=== PATIENT | male | born 2000 | race Caucasian/White ===

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

== ENCOUNTER → 2023-11-05 12:30 | Outpatient (BNV) | payer BC, SELFPAY | PROVIDERS: Visit Provider Psychiatry & Neurology Psychiatry | DX: F32.A Depression, unspecified (principal); F43.22 Adjustment disorder with anxiety; F81.89 Other developmental disorders of scholastic skills; F63.9 Impulse disorder, unspecified | CPT/HCPCS: 90792; 99212; 99213 ==

== ENCOUNTER 2023-11-18 10:15 | Outpatient (RCR) | payer BC, SELFPAY ==
[2023-11-04 14:27] VITALS: BP 141/96; PULSE 100; TEMP 36.8
--- NOTE | 2023-11-04 14:27 | PC.ADMIT ---
Patient is a 23 year old male who was referred to [facility] by his family who were concerned regarding increased depression and anxiety sxs and recent behaviors. Patient reportedly has been making some poor choices and behaving inappropriately. See Integrative Assessment for more information. Patient is alert and oriented x4. Calm and cooperative. He presented with depressed mood and anxious affect. He is regretful regarding some of the decisions he has made. He wants to work on healthier coping skills. He is not prescribed any prescription medications at present. Art denied SI or HI. He was given a copy of his safety plan if needed. He denied any issues with substances.
--- NOTE | 2023-11-05 16:44 | HO.PHP ---
Client's case has been opened and reviewed in treatment team.
--- NOTE | 2023-11-05 19:51 | P.HPPSP_ITS ---
[facility] Date of Service: 11/05/23 Chief Complaint: depression,anxiety Sources of Information: patient interviewed, chart reviewed and crisis/core team assessment reviewed HPI Narrative: This is the first [facility] admission for this 23 year old male with a history of depression, and reported childhood diagnoses of NVD and autism spectrum. He reports a long history of interpersonal struggles and poor impulse control, particularly around some sexualized behaviors which may have contributed to relationship and family stressors. He reports coming to [facility] in hopes of developing better coping skills, learning new strategies for navigating interpersonal dynamics and managing inappropriate behaviors and urges. Per previous reports, which patient was reluctant to go into detail about, but corroborated these events, which include compulsive urges toward sexualized content (constantly wanting to watch porn, masterbate), as well as sharing inappropriate photos online, including explicit photos of his 21 yr old jeanna (which were obtained without her prior knowledge) and uploaded to a fake [employer] account without her consent. This ultimately lead to his jeanna moving out of the home and his family (especially his mother and stepfather being very upset with him, once he admitted to his actions. He expresses some regret over his actions, but namely due to consequences he encountered as a result of his actions. His stepfather reportedly ignored his presence in the house for the past 4 months and only 2 days ago began talking to him again. He reports he had previously been in a very depressed state due everyone being angry with him, and only in the past day or 2 is he feeling much better now that he is more hopeful that everyone is just gonna move on from this . He expresses frustration (and limited insight) that his parents hadn't moved on as quickly as he did. He reports a history of situational depression that comes and goes , and can last for hours, up until a day or 2. He has generally found depressive episodes in the past manageable. He reports he has no more than 3 or 4 days a month where he is not able to distract himself from the depression, which leaves him feeling low mood, anhedonia and isolative. He reports a few occasions of passive SI, but this occurs rarely. Last time was around Thanksgiving due to aforementioned situation at home. He reports his current mood stability at a 7 out of 10 (10 ideal). He cites low self-esteem as the remaining issue related to depressed mood, otherwise reportedly euthymic. He says he has never been treated with medication. He reports that he has never been open to meds before, on account of concerns for having an addictive personality and believing he might get addicted to his medication. He says he has been considering starting on medication and in fact had made an appointment with a psych provider in the community. Appointment is next month. He is not clear what his expectations are in terms of how he would hope a medication could help him, other than to say I want to get better at being able to self love . Reports hx of situational anxiety related to test-taking and academics. Reports being diagnosed with non-verbal disability and being at the lower end of the spectrum and was on a 504 and IEP for learning disability since elementary through high school. He previously Past Psychiatric History: No previous IP, PHP or detox admissions Denies suicide attempts, gestures or SIB Denies hx of aggression Developmental hx of NVLD in elementary school and reportedly was diagnosed with ASD in 5th grade, and was on a 504 and IEP for learning disability, through elementary, middle and high school. including problems in math and science Outpatient therapist No prior medication trials, not currently on medication [facility] Medical History (Updated 11/05/23 @ 20:39 by Cari Villasenor MD) Testicular torsion No known health problems Narrative: h/o testicular torsion (intact) no hx of seizures, concussions or TBI morbid obesity (BMI >50) +FH for HTN, MT, heart disease, HLD Ht: 5'6 Wt: ~320 lbs ALL: NKDA, tree nuts Narrative: surgical repair at age 5 or 6 for being tongue tied Family History: Depression and anxiety in maternal GM and mother's side of family Social History: Lives at home with mother and stepfather of 6 yrs, 21 yo jeanna moved out in June currently between / year at [employer] [place] Substance History: Alcohol use: 1-2 times/month, social, in moderation Denies any cannabis or nicotine use Denies any other substance use hx Trauma History: Denies any hx of physical, sexual or emotional abuse Meds/Allergies Meds Home Medications Medication Instructions Recorded Confirmed Type No Known Home Meds 11/04/23 11/04/23 History Allergies Allergies Allergy/AdvReac Type Severity Reaction Status Date / Time tree nut Allergy itchy Verified 11/04/23 13:15 throat Mental Status Exam Mental Status Exam Narrative: Alert, oriented, in no acute distress. Casually dressed. Calm, cooperative, forthcoming. Eye contact maintained. Mood euthymic, affect appropriate. Normal speech. No evidence of thought disorder. Goal-directed. Future-oriented. +minimization of role in current situation/ relationship stressors. No SI or HI on inquiry. No evidence of olegario or psychosis. Cognition grossly intact. Sensorium clear. Insight limited, and judgment tenuous. Assessment & Plan Assessment & Plan (1) Depressive disorder: Status: Acute Code(s): F32.A - Depression, unspecified (2) Adjustment disorder with anxiety: Status: Acute Code(s): F43.22 - Adjustment disorder with anxiety (3) Disorder of impulse control: Status: Acute Code(s): F63.9 - Impulse disorder, unspecified (4) Non-verbal learning disorder: Status: Acute Code(s): F81.89 - Other developmental disorders of scholastic skills Plan Admit to PHP Patient not currently presecribed medication, has been reluctant in the past, but says he is open to discussing possibility Interpersonal/socialization deficits, NVD and other developmental issues, impulse control issues possibly related to ADD, as well as emotional immaturity are worth under consideration in patient's presentation Patient given ASRS to fill out and return, will continue discussion around developmental issues Will consider whether AD tx is warranted, whether benefits outweigh risks vs non-medication options alone Identify whether there are appropriate target symptoms for treatment Continue to monitor as per protocol Patient educated on: diagnosis, medication risk/benefits and therapeutic strategies Informed Consent: understands Reason for continued partial hosp. stay Substantial Risk for: inability to function, rapid decompensation and med/psych decompensation Certification I certify that partial hospital treatment is medically necessary due to the symptoms and problems resulting from the patient's mental illness and the failure to treat the patient at the partial hospital level of care would likely result in the patient requiring inpatient psychiatric care which could not be prevented at a less intensive level of care. Time Spent With Patient Time: Total time managing care of this patient today __60__ minutes.
--- NOTE | 2023-11-12 21:09 | HO.PHPPROGNO ---
Subjective Subjective Date of Service: 11/12/23 Reason For Visit: depression,anxiety Interim History: Reports doing well. Denies feeling depressed. 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 Talks about maintaining boundaries but still gaining perspective here and talking about issues without discussing details. He also has friends at religion whom he is close with and can talk in more candidly with without fear of judgment. He shares his perspective about where things stand with his stepsister and is trying to accept that she needs space and is on her own timeline as to processing and working through her anger at him, and realizing there is nothing he can do, so he is learning to move on and focus on his own issues. He also discusses the [employer] group he is part of . He denies any alcohol or substance use. NO h/h/SI or HI. He continues without medications and feel he is at his bsaeline. Attending Groups: Yes Review of Systems Acute medical concerns: No Mental Status Exam Mental Status Exam Narrative: Alert, oriented, in no acute distress. Casually dressed. Calm, cooperative, forthcoming. Eye contact maintained. Mood euthymic, affect appropriate. Normal speech. No evidence of thought disorder. Goal-directed. Future-oriented. Thought content relevant to current situation/ relationship stressors. No SI or HI on inquiry. No evidence of olegario or psychosis. Cognition grossly intact. Sensorium clear. Insight and judgment fair but adequate Assessment & Plan Assessment & Plan (1) Adjustment disorder with anxiety: Status: Acute Code(s): F43.22 - Adjustment disorder with anxiety (2) Disorder of impulse control: Status: Acute Code(s): F63.9 - Impulse disorder, unspecified (3) Non-verbal learning disorder: Status: Acute Code(s): F81.89 - Other developmental disorders of scholastic skills Plan no psychopharmacological intervention warranted at this time Patient educated on: diagnosis and medication risk/benefits Informed Consent: understands Reason for contiued partial hosp. stay Substantial Risk for: inability to function and med/psych decompensation Certification I certify that partial hospital treatment is medically necessary due to the symptoms and problems resulting from the patient's mental illness and the failure to treat the patient at the partial hospital level of care would likely result in the patient requiring inpatient psychiatric care which could not be prevented at a less intensive level of care. Total time managing care of this patient today __30__ minutes. Discharge Plan Discharge Attending provider: Cari Villasenor Medications: No Action No Known Home Meds
--- NOTE | 2023-11-17 23:12 | P.PNPSP_ITS ---
Subjective Subjective Date of Service: 11/17/23 Reason For Visit: depression,anxiety Interim History: Patient seen for follow-up today, anticipates discharge at the end of the day. No acute issues or concerns. He reports finding the program helpful, and that he has made progress with working through and processing his thoughts and feelings about the recent situation he was in. He says he is ready to move forward and is focused on his own endeavors and has friends and supports in his [employer]astaf[employer]. He says his relationship are slwoly improving with his mother and step- father. Presently his stepsister is still not speaking with him but he accepts he must give her space and that there is a chance she will not be willing to re- establish communication with him and he says that will be okay. He is focused on his future, he denies any hopelessness, helplessness or SI. Denies any aggress geni ideation, HI, AH, VH. ASRS questionnaire was administered and patient endorses few to no symptoms of ADHD. He has not been started on medication and does not seem any is indicated at this time. Medication Compliance: Yes Side effects from medications: No Attending Groups: Yes Review of Systems Acute medical concerns: No Mental Status Exam Mental Status Exam Narrative: Alert, oriented, in no acute distress. Casually dressed. Calm, cooperative, forthcoming. Eye contact maintained. Mood euthymic, affect appropriate. Normal speech. No evidence of thought disorder. Goal-directed. Future-oriented. Thought content relevant to current situation/ relationship stressors. No SI or HI on inquiry. No evidence of olegario or psychosis. Cognition grossly intact. Sensorium clear. Insight and judgment fair/good Assessment & Plan Assessment & Plan (1) Depressive disorder: Status: Acute Code(s): F32.A - Depression, unspecified (2) Adjustment disorder with anxiety: Status: Acute Code(s): F43.22 - Adjustment disorder with anxiety (3) Non-verbal learning disorder: Status: Acute Code(s): F81.89 - Other developmental disorders of scholastic skills (4) Disorder of impulse control: Status: Acute Code(s): F63.9 - Impulse disorder, unspecified Plan Discharge from [facility] Patient was not started on any medications per patient preference Patient educated on: diagnosis and medication risk/benefits Reason for contiued partial hosp. stay Substantial Risk for: stable for discharge Certification I certify that partial hospital treatment is medically necessary due to the symptoms and problems resulting from the patient's mental illness and the failure to treat the patient at the partial hospital level of care would likely result in the patient requiring inpatient psychiatric care which could not be prevented at a less intensive level of care. Total time managing care of this patient today _30___ minutes. Discharge Plan Discharge Attending provider: Cari Villasenor Medications: Continued No Known Home Meds Stand Alone Forms: Patient Portal Discharge page Patient Education: Depression (DC)
== END 2023-11-18 23:59 | disposition home or self-care (01) ==
LOC: HO.PHPA 10:15
PROVIDERS: Visit Provider Psychiatry & Neurology Psychiatry
DX: F32.A Depression, unspecified (principal); F43.22 Adjustment disorder with anxiety; F63.9 Impulse disorder, unspecified; F81.89 Other developmental disorders of scholastic skills
CPT/HCPCS: 90791; 90853